=== PATIENT | female | born 1980 | race Hispanic/Latino ===

== ENCOUNTER 2017-07-22 10:12 | Emergency (ER) | payer BC ==
[2017-07-22] MEDS ORDERED: Morphine 4 MG/ML VIAL ONE (11:27)
[2017-07-22] MEDS ORDERED: Ondansetron HCl/PF 4 MG/2 ML Vial ONE (11:27)
[2017-07-22 11:30] LABS: #Eosinphils 0.1 thou/uL (0.0-0.7); #Lymphocytes 2.1 thou/uL (1.20-3.40); #Monocytes 1.1 thou/uL (0.11-0.59); #Neutrophils 8.7 thou/uL (1.40-6.50); %Basophils 0.4 % (0.0-1.0); %Eosinophils 0.5 % (0.0-10.0); %Lymphocytes 17.7 % (21.0-51.0); %Monocytes 9.4 % (0.0-10.0); Hematocrit 38.9 % (36.0-47.0); Mean Platelet Volume 9.1 fL (7.4-10.4); Red Blood Cell (RBC) Count 4.51 mill/uL (4.20-5.40); White Blood Cell (WBC) Count 12.1 thou/uL (4.8-10.8)
[2017-07-22 11:52] LABS: ALT (SGPT) 14 U/L (8-55); AST (SGOT) 18 U/L (5-34); Alkaline Phosphatase 53 U/L (40-150); Anion Gap 13 mmol/L (10-20); BUN (Urea Nitrogen) 4 mg/dL (7.0-18.7); Bilirubin, Total 0.4 mg/dL (0.2-1.2); Calc. Creatinine Clearance 0 mL/min (70-130); Calcium 8.4 mg/dL (7.8-10.44); Carbon Dioxide 24 mmol/L (22-29); Chloride 104 mmol/L (98-107); Estimated GFR-MDRD Greater than 90; Globulin 3.6 g/dL (2.4-3.5); Lipase 14 U/L (8-78); Protein, Total 7.3 g/dL (6.0-8.3)
--- NOTE | 2017-07-22 12:32 | CT ---
CT ABDOMEN AND PELVIS: 07/22/2017 PROVIDED CLINICAL HISTORY: Abdominal pain radiating to back. FINDINGS: The visualized lung bases are free of significant opacity. The solid abdominal organs are suboptimally evaluated without IV contrast material but demonstrate a n unremarkable, unenhanced CT appearance, with additional limitation due to patient respiratory jason on. There is a somewhat tubular structure, measuring about 1.6 cm in diameter, inseparable from the ceca l apex, with questioned adjacent fat stranding. This appears separate from the terminal ileum. A n ormal appearing appendix, distinct from this structure, is not definitely identified. This could re flect redundant small bowel in this region. This could also reflect the right ovary. An enlarged a ppendix cannot be entirely excluded on the basis of this study. There is no bowel dilatation, additional fat stranding, or free air apparent. There is trace, possi kerwin physiologic free pelvic fluid. The osseous structures demonstrate no concerning osteoblastic or osteolytic lesions. IMPRESSION: 1. No evidence for urinary tract calculi or hydronephrosis. 2. Tubular structure in the right lower quadrant, inseparable from the cecal apex, as described abo ve. The etiology and significance of this finding is not completely certain on the basis of this st udy. An enlarged appendix is felt less likely than adjacent redundant small bowel or possibly even the right ovary. Correlation with a CT of the abdomen and pelvis, utilizing intravenous and enteric contrast is recommended for further evaluation. 3. Small amount of possibly physiologic free pelvic fluid. POS: OFF
[2017-07-22 12:54] LABS: Bilirubin Negative (Negative); Blood, Urine Small (Negative); Glucose, Urine (Dipstick) Negative (Negative); Ketone, Urine Trace mg/dL (Negative); Nitrite Negative (Negative); Protein, Urine (Dipstick) 30 mg/dL (Neg-Trace); Urobilinogen 0.2 mg/dL (0.2-1.0)
[2017-07-22 12:59] LABS: Bacteria/HPF 2+ HPF (None Seen); Hyaline Casts/LPF 0-3 HYALINE CAST LPF (0-3 Hyaline); Squamous Epithelial 0-3 HPF (0-3)
[2017-07-22] MEDS ORDERED: cefTRIAXone\\ROCEPHIN 1 GM, Syringe 0.4 ML in Sterile Water 9.6 ML SLOW IVP SCH (13:45)
[2017-07-22] MEDS ORDERED: cefTRIAXone\\ROCEPHIN 500 MG VIAL ONE (13:56)
--- NOTE | 2017-07-22 14:30 | ULT ---
PELVIC ULTRASOUND: Date: 07/22/17 HISTORY: Left upper quadrant pain. Pelvic free fluid noted on recent CT. COMPARISON: None. TECHNIQUE: Transabdominal and endovaginal imaging of the pelvis performed. Ovaries interrogated with Escobar scale , color flow, Doppler imaging, and spectral waveform analysis. FINDINGS: Uterus measures 9.4 x 4.9 x 5.8 cm. Endometrium has a homogeneous echotexture. Endometrium measures 1.6 cm. Left and right ovary have an overall normal echotexture. Right ovary measures 2.5 x 1.6 x 3.3 cm. Le ft ovary measures 2.8 x 2.0 x 2.7 cm. Possibility of ovarian follicles is raised. Multiple nabothian cysts are noted. There is complex echotexture in the isthmus of the uterus and fallopian tubes bilaterally. Cystic co mponents on the left side are noted measuring 1.1 x 1.9 x 1.0 cm. Ovarian Doppler: Vascular flow to both ovaries. IMPRESSION: 1. Complex structures in the junction of the isthmus of the uterus and the fallopian tubes, bilater ally. Cystic components are noted on the left side. Better interrogation with pelvic MRI is recommen ded. 2. Bilateral nabothian cysts. 3. Free fluid in the pelvis. POS: [facility]
== END 2017-07-22 14:53 | disposition home or self-care (01) ==
LOC: ERS 10:12
DX: N12 Tubulo-interstitial nephritis, not specified as acute or chronic (principal); N39.0 Urinary tract infection, site not specified; J45.909 Unspecified asthma, uncomplicated
CPT/HCPCS: 74176; 76856; 80053; 81003; 81015; 83690; 84703; 85025; 87077; 87086; 87186; 96361; 96374; 96375; A4216; J0696; J2270; J2405